=== PATIENT | male | born 1995 | race Caucasian/White ===

== ENCOUNTER 2019-01-24 23:49 | Emergency (ER) | payer OTHER ==
[2019-01-25] MEDS ORDERED: oxyCODONE/Acetamin 5/325 MG* TAB PO ONE (00:03)
[2019-01-25] MEDS ORDERED: Lidocaine 2% EPI 1:200000 MPF* 10 ML VIAL INJ ONE (00:03)
--- NOTE | 2019-01-25 00:10 | ED ---
Upper Extremity Pain - HPI Summary HPI Summary: 23-year-old male presents with left wrist injury today. He states that he tripped and ended up falling into a trench. He landed on his left wrist. Denies any other injury. No neck or back pain. No head injury. No loss consciousness. Denies any chest pain shortness of breath or abdominal pain. No lower extremity pain. Denies any shoulder pain. He admits to pain radiates to elbow. He is right-handed. No previous fracture to the area. Took some ibuprofen prior to arrival. - History of Current Complaint Chief Complaint: EDExtremityUpper Stated Complaint: POSS BROKEN WRIST PER PT FRIENDS Time Seen by Provider: 01/24/19 23:58 - Allergies/Home Medications Allergies/Adverse Reactions: Allergies Allergy/AdvReac Type Severity Reaction Status Date / Time No Known Allergies Allergy Verified 01/25/19 00:01 Home Medications: Home Medications Fluoxetine 20 mg PO BID 01/25/19 [History Confirmed 01/25/19] PMH/Surg Hx/FS Hx/Imm Hx Endocrine/Hematology History: Denies: Hx Anticoagulant Therapy Respiratory History: Denies: Hx Asthma Infectious Disease History: No Infectious Disease History: Denies: Traveled Outside the [place] in Last 30 Days - Family History Known Family History: Positive: Non-Contributory - Social History Substance Use Type: Reports: None Review of Systems Negative: Fever Negative: Chest Pain Negative: Shortness Of Breath Positive: Myalgia - left wrist pain All Other Systems Reviewed And Are Negative: Yes Physical Exam Triage Information Reviewed: Yes Vital Signs On Initial Exam: Initial Vitals Temp Pulse Resp BP Pulse Ox 98.2 F 80 19 147/87 100 01/24/19 23:50 01/24/19 23:50 01/24/19 23:50 01/24/19 23:50 01/24/19 23:50 Vital Signs Reviewed: Yes Appearance: Positive: Well-Appearing Skin: Positive: Warm, Dry Head/Face: Positive: Normal Head/Face Inspection Eyes: Positive: Normal, Conjunctiva Clear ENT: Positive: Pharynx normal Neck: Positive: Other: - nontender neck, full ROM neck Respiratory/Lung Sounds: Positive: Clear to Auscultation, Breath Sounds Present Cardiovascular: Positive: Normal, RRR Musculoskeletal: Positive: Limited @ - left wrist, Other - swelling to left wrist, good pulses, able to move fingers but has extreme pain. decreased sensation grossly index finger, nontender knees, ankle, shoulder, tenderness elbow left Neurological: Positive: Normal Psychiatric: Positive: Normal Procedures - Sedation Patient Received Moderate/Deep Sedation with Procedure: No - Splinting left wrist Location: left wrist Hand-Made Type: orthoglass Splint: sugar-tong Pre-Proc Neuro Vasc Exam: normal Post-Proc Neuro Vasc Exam: normal Splint Applied by Provider: [facility] - Vital Signs Vital Signs Temp Pulse Resp BP Pulse Ox 01/25/19 00:07 20 01/24/19 23:50 98.2 F 80 19 147/87 100 - Laboratory Lab Statement: Any lab studies that have been ordered have been reviewed, and results considered in the medical decision making process. - Radiology forearm Radiology Interpretation Completed By: ED Physician Summary of Radiographic Findings: radius fracture Course/Dx - Course Course Of Treatment: 23-year-old male presents with left wrist injury today. He states that he tripped and ended up falling into a trench. He landed on his left wrist. Denies any other injury. No back pain. No head injury. No loss consciousness. Denies any chest pain shortness of breath or abdominal pain. No lower extremity pain. Denies any shoulder pain. He admits to pain radiates to elbow. He is right-handed. No previous fracture to the area. Took some ibuprofen prior to arrival. On exam has swelling noted to left wrist. able to move fingers with pain. has some numbness to index finger grossly but does have ROM with pain. X-ray shows distal radius fracture. discussed with dr serrano that is not so displaced that would reduce in ED. placed in sugar tong splint. will have follow up with ortho. told to ice and elevate. patient understand and agrees with plan. - Diagnoses Differential Diagnosis/HQI/PQRI: Positive: Fracture (Closed), Strain, Sprain Provider Diagnoses: Left radial fracture Discharge ED - Sign-Out/Discharge Documenting (check all that apply): Patient Departure - Discharge Plan Condition: Good Disposition: HOME Prescriptions: oxyCODONE/Acetamin 5/325 MG* [Percocet 5/325 TAB*] 1 tab PO Q6H PRN #16 tab MDD 4 PRN Reason: Pain - Moderate Patient Education Materials: Wrist Fracture in Adults (ED) Referrals: No Primary Care Phys,NOPCP [Primary Care Provider] - Elia Powell MD [Medical Doctor] - Additional Instructions: Keep elbow in sling as needed Keep splint on area and keep dry Call ortho office tomorrow to set up appointment for follow up Use ibuprofen for pain every 6 hours and use percocet for breakthrough pain every 6 hours Ice, elevate Return to ED if develop any new or worsening symptoms - Billing Disposition and Condition Condition: GOOD Disposition: Home
[2019-01-25 01:33] VITALS: BP 135/81
== END 2019-01-25 01:32 | disposition home or self-care (01) ==
LOC: ED 23:49
DX: S52.92XA Unspecified fracture of left forearm, initial encounter for closed fracture (principal); W01.0XXA Fall on same level from slipping, tripping and stumbling without subsequent striking against object, initial encounter; Y92.9 Unspecified place or not applicable; Z79.899 Other long term (current) drug therapy
CPT/HCPCS: 96374; 99283; A9270-GY